=== PATIENT | male | born 1995 | race Caucasian/White ===

== ENCOUNTER 2020-02-08 13:46 | Emergency (ER) | payer OTHER ==
[~2020-02-08] VITALS: Ht 403.9 cm; Wt 65.8 kg
[~2020-02-08 13:46] MED LIST: COLACE100 MG PO; NORCO1 TA2 PO
[2020-02-08 13:51] VITALS: Ht 403.9 cm; Wt 65.8 kg
[2020-02-08 14:04] VITALS: BP 129/75
== END 2020-02-08 14:04 | disposition home or self-care (01) ==
LOC: ED 13:46
DX: R51 Headache (principal); M54.2 Cervicalgia; J45.909 Unspecified asthma, uncomplicated